=== PATIENT | male | born 1950 | race Caucasian/White ===

== ENCOUNTER 2020-10-29 09:03 | Outpatient (CLI) | payer BC, SELFPAY | END 2020-10-29 09:04 | disposition home or self-care (01) | LOC: ANHSURGERY 09:06 | PROVIDERS: PCP Internal Medicine; Visit Provider Surgery | DX: Z01.818 Encounter for other preprocedural examination (principal); K40.90 Unilateral inguinal hernia, without obstruction or gangrene, not specified as recurrent | CPT/HCPCS: 36415; 86850; 86900; 86901 ==

== ENCOUNTER 2020-11-01 02:29 | Outpatient (CLI) | payer BC, SELFPAY ==
[2020-11-01 17:23] LABS: SARS-CoV-2 RNA PCR Negative
== END 2020-11-01 02:30 | disposition home or self-care (01) ==
LOC: ANHCOVIDDT 02:29
PROVIDERS: PCP Internal Medicine; Visit Provider Surgery
DX: Z01.812 Encounter for preprocedural laboratory examination (principal); Z20.822 Contact with and (suspected) exposure to COVID-19
CPT/HCPCS: C9803; U0003

== ENCOUNTER 2020-11-04 01:23 | Day surgery (SDC) | payer BC, SELFPAY ==
[2020-10-28 10:07] VITALS: BMI 28.9
[2020-11-04] VITALS (7 sets, daily range): BP systolic 117–150; BP diastolic 71–85; PULSE 52–65; RESP 12–16; TEMP 36.6–37.1; O2SAT 98–100
[2020-11-04] MEDS: ACETAMINOPHEN 500 MG TABLET 1000 MG PO (10:57)
[2020-11-04] MEDS: LACTATED RINGERS 1,000 ML 30 ML IV CONT ×2 (11:08→13:55)
--- NOTE | 2020-11-04 11:30 | P.PNAN_ITS ---
Anes - Initial Pre Proc Eval Procedure: Operation Date: 11/04/20 12:30 Proposed Procedures p Robotic Assisted Laparoscopic Right Inguinal Hernia Repair With Mesh - Lizzie Jhaveri MD Date/Time: 11/04/20 11:30 Surgeon: Lizzie Jhaveri MD Pre Op Diagnosis: Inguinal Hernia with obstruction but No Gangrene Patient Data Age: 70 Gender: M Height: 6 ft 2 in Weight: 102.1 kg Allergies Allergy/AdvReac Type Severity Reaction Status Date / Time No Known Allergies Allergy Verified 11/04/20 11:34 Home Medications Medication Instructions Recorded Confirmed Type No Home Medications 10/01/20 10/28/20 History Patient hx anesthesia problems: none Family hx anesthesia problems: none PMFSH Past Medical History Medical History No pertinent past medical history Surgical History Surgical History History of surgical removal of skin lesion lipoma from left arm [place] teeth removed Family History Family History Mother Patient's mother is in good health Father Family history of malignant neoplasm, Onset Age: 78 Leukemia Social History Social History Smoking status: Never smoker Alcohol intake: current Alcohol use details: 1-2 DRINKS PER MONTH Living arrangements: with family 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 Questions were solicited and answers provided to the satisfaction of the patient/family/POA.
[2020-11-04] MEDS: KETOROLAC 15 MG/ML VIAL (*BKC) IV PUSH (11:33)
--- NOTE | 2020-11-04 11:54 | WPDHPUPDATE1 ---
History and Physical Update Update Date/Time: 11/04/20 11:54 History and Physical has been reviewed, including an updated exam of the patient. There are NO changes in the patient's condition. Risks, benefits, and alternatives have been discussed and questions answered. Patient agrees to proceed with procedure.
[2020-11-04] MEDS: ceFAZolin 2 GM/D5W 50 ML 2 GM/50 ML BAG IVPB (12:04)
[2020-11-04] MEDS: BUPIVACAINE HCL 0.5% PF 30 ML VIAL INFILTRATE (12:44)
--- NOTE | 2020-11-04 14:00 | P.OP_ITS ---
Procedure Note - Detailed Date of procedure: 11/04/20 Pre-op diagnosis: Inguinal Hernia with obstruction but No Gangrene Post-op diagnosis: other (incarcerated RIH c scrotal extension) Procedure performed: robotic assisted right inguinal hernia repair Description of procedure: Patient was brought into the operating room and placed in the supine position. After adequate induction of general anesthesia, the patient was prepped and draped in normal sterile fashion. A time-out was then done to verify the patient's identity, as well as the procedure being performed. Began by making a 8 mm incision in the supraumbilical region, a Veress needle was then placed into the peritoneal cavity. CO2 gas was then insufflated and after adequate pneumoperitoneum was achieved, the Veress needle was removed. I then placed an 8 mm trocar through this incision. I then placed the endoscope through this trocar site and under direct visualization placed 2 further 8 mm ports in the right and left mid abdomen. The [employer] robot was then docked to the 3 trocar sites. I then scrubbed out and went to the robotic console. Upon examining the pelvis, it was noted that the patient had a incarcerated right inguinal hernia with some preperitoneal fat. I was able to reduce the preperitoneal fat with gentle retraction out of the hernia. Once this was done, I began by making a preperitoneal flap approximately 6 cm superior to the defect. This flap was carried medially past the umbilical ligaments in laterally to the transversalis. It then began dissection of my medial compartment taking this down to the pubic tubercle. I then began the lateral dissection taking this down to the transversalis fascia. Once these compartments were achieved, I began dissection around the cord structures. It was noted at this point that the patient had a indirect hernia. Patient also had a large lipoma the cord. Using careful dissection, was able to reduce the lipoma cord as well separate the indirect hernia off the cord structures. The hernia was large and extended into the scrotum. Once this was adequately done, I went ahead and placed a 15 x 10 piece of [employer] mesh into the abdominal cavity. The mesh was carefully positioned, centering the center of the mesh over the indirect defect. Once this was done, was very satisfied with our repair. I then closed the peritoneal flap with a running 2.0 V Lock suture. The abdomen was then desufflated, and all ports were removed. All incisions were then closed with the 4.0 monocryl suture. Dermabond was placed on each wound. The patient tolerated the procedure well, was extubated in the operating room postoperatively, and will now be transferred to the recovery room in stable condition. Implants: 15 x 10 progrip mesh Anesthesia: GETA Surgeon: Lizzie Jhaveri MD Estimated blood loss (mL): 10 Drains: No Packing: No Pathology: none sent Complications: No immediate complications Condition: stable Disposition: PACU Findings: indirect RIH c incarcerated fat and scrotal extension
--- NOTE | 2020-11-04 14:21 | SUR.PHASEI ---
PT AWAKE AND ALERT. STATES MILD SORENESS. DOES NOT WANT ANY PAIN MEDICINE AT THIS TIME.
[2020-11-04] MEDS: oxyCODONE HCL (*CRX) 5 MG TAB IR PO (14:51)
== END 2020-11-04 16:05 | disposition home or self-care (01) ==
PROVIDERS: PCP Internal Medicine; Visit Provider Surgery
PROC: 8E0Y4CZ Robotic Assisted Procedure of Lower Extremity, Percutaneous Endoscopic Approach (ICD-10-PCS; CPT 49650; principal; 2020-11-04 12:30)
DX: K40.30 Unilateral inguinal hernia, with obstruction, without gangrene, not specified as recurrent (principal)
CPT/HCPCS: 49650; S2900; A9270; C1781; J0690; J1100; J1885; J2250; J2405; J2704; J2710; J3010; J7120

== ENCOUNTER 2021-02-07 10:48 | Outpatient (CLI) | payer BC, SELFPAY ==
--- NOTE | ~2021-02-07 | US_ITS ---
EXAMINATION: US scrotum doppler DATE: 02/07/2021 11:52 INDICATION: Right testicular pain TECHNIQUE: Testicular sonogram utilizing grayscale and Doppler COMPARISON: None. FINDINGS: The right testis measures 4.6 x 2.0 x 2.3 cm. There is mild enlargement of the rete testis. The left testis measures 4.6 x 1.9 x 3.0 cm. There is mild enlargement of the rete testis. There is decreased flow to the inferior pole of the right testis without discrete mass identified. There are c ysts or a spermatoceles of the epididymides. Bilateral varicoceles are noted. IMPRESSION: 1. Mildly decreased flow in the inferior pole of the right testis without discrete mass identified. C orrelate for history of trauma. Recommend continued clinical follow-up and repeat ultrasound. Reviewed, dictated and finalized at location B. IMPRESSION: 1. Mildly decreased flow in the inferior pole of the right testis without discr ete mass identified. Correlate for history of trauma. Recommend continued clini brenda follow-up and repeat ultrasound.
--- NOTE | ~2021-02-07 | US_ITS ---
EXAMINATION: US soft tissue pelvic INDICATION: Right lower quadrant, history of right inguinal hernia repair TECHNIQUE: Targeted high-resolution ultrasound of the right lower quadrant is performed. COMPARISON: None available FINDINGS: No sonographically detected abnormality is identified in the right lower quadrant in the ar ea of the patient's pain. There is a 7.3 x 5.1 cm hypoechoic mass in the right lower quadrant located more cranially than the area of patient's pain. The mass demonstrates posterior acoustic enhancement without definite internal vascularity. IMPRESSION: 1. No sonographic correlate for the patient's symptoms. 2. Right lower quadrant mass of unclear origin. Finding could reflect sequela of surgery, lymph node, or other solid neoplasm. Further evaluation by CT of the abdomen and pelvis with contrast is recomme nded. Reviewed, dictated and finalized at location B. IMPRESSION: 1. No sonographic correlate for the patient's symptoms. 2. Right lower quadrant mass of unclear origin. Finding could reflect sequela o f surgery, lymph node, or other solid neoplasm. Further evaluation by CT of the abdomen and pelvis with contrast is recommended.
== END 2021-02-07 10:49 ==
PROVIDERS: PCP Internal Medicine; Visit Provider Surgery
DX: N50.811 Right testicular pain (principal); R10.31 Right lower quadrant pain
CPT/HCPCS: 76857; 76870; 93976

== ENCOUNTER → 2021-02-14 13:19 | Outpatient (CLI) | payer BC, SELFPAY ==
--- NOTE | ~2021-02-14 | CT_ITS ---
EXAMINATION: CT abdomen pelvis w con DATE: 02/14/2021 13:54 INDICATION: Right lower quadrant mass. TECHNIQUE: Computed tomography (CT) of the abdomen and pelvis was performed with 100 mL Omnipaque 350 intravenous contrast. Automated exposure control and iterative reconstruction technique were employe d. The dose-length product was 1055.62 mGy-cm. COMPARISON: Ultrasound 02/07/2021 FINDINGS: The visualized portions of the lung bases are clear without pneumonia or pleural effusion. The heart size is normal. No pericardial effusion. Calcifications in the liver and spleen are consist ent with old granulomatous disease. The pancreas, adrenal glands, and kidneys are normal. The prostat e is moderately enlarged. There is diverticulosis of the colon without evidence of diverticulitis. Th e appendix is normal. There is no significant stenosis of celiac axis or superior mesenteric artery o r inferior mesenteric artery. In the retroperitoneum, there is a large distribution of fat stranding and soft tissue attenuation. The distribution of abnormality extends 22 cm craniocaudal from the righ t inguinal region to the retroperitoneal fat posterior to the right kidney. The abnormality extends l eftward across the midline through the root of the small bowel mesentery. There are some small calcif ications within this fat stranding in the right retroperitoneum. In the right retroperitoneum, there is a 8.8 x 6.0 x 6.3 cm mass with relatively hyperdense at the periphery that may be enhancement or c alcification. In the small bowel mesentery to the left of midline, there is an 8.1 x 6.6 x 6.3 cm mas s measuring soft tissue attenuation. An enlarged left para-aortic node measures 2.0 x 1.5 cm. There i s no ascites. There is severe lumbar spondylosis and mild thoracic spondylosis. There is a hemangioma in L1 vertebral body. IMPRESSION: 1. Large distribution of abnormality in the retroperitoneum, most likely at least predominantly fat n ecrosis. An 8.8 cm mass in the right retroperitoneum may be fat necrosis, hematoma, abscess, or urino ma. An 8.1 cm mass in the left retroperitoneum may be hematoma. Malignancy is not excluded. Consider CT urogram to exclude right ureteral injury and left retroperitoneal mass enhancement. 2. Mildly enlarged left para-aortic lymph node. Reviewed, dictated and finalized at location B. IMPRESSION: 1. Large distribution of abnormality in the retroperitoneum, most likely at sandro st predominantly fat necrosis. An 8.8 cm mass in the right retroperitoneum may be fat necrosis, hematoma, abscess, or urinoma. An 8.1 cm mass in the left ret roperitoneum may be hematoma. Malignancy is not excluded. Consider CT urogram t o exclude right ureteral injury and left retroperitoneal mass enhancement. 2. Mildly enlarged left para-aortic lymph node.
[2021-02-14 13:43] LABS: Estimated Glomerular Filt Rate > 60
== END ==
PROVIDERS: PCP Internal Medicine; Visit Provider Surgery
DX: R19.03 Right lower quadrant abdominal swelling, mass and lump (principal)
CPT/HCPCS: 74177; Q9967

== ENCOUNTER 2021-04-02 08:49 | Outpatient (CLI) | payer BC, SELFPAY ==
--- NOTE | ~2021-04-02 | CT_ITS ---
EXAMINATION: CT abdomen pelvis w con EXAM DATE: 04/02/2021 09:29 INDICATION: R19.03 - Right lower quadrant abdominal swelling, mass. TECHNIQUE: Spiral CT of the abdomen and pelvis was performed following intravenous injection of 100 m L Omnipaque 350. Axial, coronal and sagittal images of the abdomen and pelvis were reviewed. The do se-length product (DLP) for this examination was 987.14 mGy-cm. The exposure was tailored according to patient size (auto mA exposure control), and iterative reconstruction (ASIR) was used as additiona l dose reduction technique. Comparison is made to prior examination from 02/13/2021. FINDINGS: Right lower retroperitoneal heterogeneously enhancing, necrotic mass measures 11 cm in AP d imension versus 8.5 on prior study, has increased in size. It is causing some mass effect on the righ t iliopsoas muscle and the right ureter, causing mild to moderate right-sided hydronephrosis which is new compared to previous examination. Higher up there are other soft tissue and fat densities exten ding between the right kidney and right iliopsoas muscle. There is also another lobulation of the lob ulations of this mass both fat and soft tissue density extending toward the left side of the retroper itoneum. Metastatic lymph node between the duodenum and aorta measuring 1.9 cm. Small bowel, omentum being displaced anteriorly by this mass. IVC is flattened or mass effect. Probably liposarcoma or oth er retroperitoneal malignancy. Splenic and liver granulomata. The liver, spleen, adrenal glands and pancreas are otherwise unremarka ble. Gallbladder is unremarkable. No biliary obstruction. The prostate is unremarkable. The bladd er is unremarkable. There is no retroperitoneal or pelvic lymphadenopathy. There is mild scattered arteriosclerotic disease. The appendix is normal. There is extensive sigmoid predominant colonic diverticulosis. There is no a djacent inflammatory change to suggest diverticulitis. The stomach and small bowel are unremarkable. There is expected amount of colonic stool. No free intraperitoneal gas. The heart is normal in s ize. There are no pericardial or pleural effusions. The lung bases are unremarkable. There are no osteoblastic or osteolytic lesions identified. IMPRESSION: 1. Increase in size of retroperitoneal mass, appearance most consistent with liposarcoma. 2. Development of mild to moderate right hydronephrosis from mass effect on ureter. 3. Development of flattening of IVC from mass effect. 4. Extensive sigmoid diverticulosis. I spoke with office manager receptionist in office of Dr. Lizzie Jhaveri at 04/02/2021 13:54 CDT. Requested that he review this report. Reportedly he will be in the office tomorrow. Reviewed, dictated and finalized at location A. IMPRESSION: 1. Increase in size of retroperitoneal mass, appearance most consistent with l iposarcoma. 2. Development of mild to moderate right hydronephrosis from mass effect on ur eter. 3. Development of flattening of IVC from mass effect. 4. Extensive sigmoid diverticulosis. I spoke with office manager receptionist in office of Dr. Lizzie Jhaveri at 04/02/2021 13:54 CD T. Requested that he review this report. Reportedly he will be in the office t omorrow.
[2021-04-02 09:19] LABS: Estimated Glomerular Filt Rate 35
== END 2021-04-02 08:50 | disposition home or self-care (01) ==
PROVIDERS: PCP Internal Medicine; Visit Provider Surgery
DX: R19.03 Right lower quadrant abdominal swelling, mass and lump (principal); K57.30 Diverticulosis of large intestine without perforation or abscess without bleeding
CPT/HCPCS: 74177; Q9967

== ENCOUNTER → 2021-04-04 03:33 | Outpatient (CLI) | payer BC, SELFPAY ==
[2021-04-04 19:50] LABS: SARS-CoV-2 RNA PCR Negative
== END ==
PROVIDERS: PCP Internal Medicine; Visit Provider Surgery
DX: Z01.812 Encounter for preprocedural laboratory examination (principal); Z20.822 Contact with and (suspected) exposure to COVID-19
CPT/HCPCS: C9803; U0003; U0005

== ENCOUNTER 2021-04-07 08:57 | Outpatient (CLI) | payer BC, SELFPAY ==
[2021-04-04 09:57] VITALS: BMI 28.8
[2021-04-07 09:10] LABS: Basophils Percent Auto 0.4 % (0.2-1.2); Eosinophils Absolute Auto 0.1 K/mm3 (0-0.3); Eosinophils Percent Auto 1.6 % (0-4.4); Hematocrit 41.5 % (42.0-52.0); Hemoglobin 13.5 g/dL (14.0-18.0); Immature Granulocyte Absolute 0.07 K/mm3 (0.00-0.031); Immature Granulocyte Percent A 0.9 % (0-0.5); Lymphocytes Absolute Auto 0.81 K/mm3 (0.9-3.2); Lymphocytes Percent Auto 9.9 % (18.3-44.2); Mean Corpuscular HGB Conc 32.5 g/dl (32-36); Mean Corpuscular Hemoglobin 29.6 pg (26-34); Mean Platelet Volume 9.4 fl (7.4-10.4); Monocytes Absolute Auto 0.8 K/mm3 (0.1-0.6); Monocytes Percent Auto 9.3 % (2.6-8.5); Neutrophils Absolute Auto 6.4 K/mm3 (1.3-6.7); Neutrophils Percent Auto 77.9 % (45.5-73.1); Platelet Count Result 148 k/mm3 (150-375); Red Blood Count 4.56 M/mm3 (4.6-6.20); Red Cell Distribution Width 12.2 % (11.5-14.5); White Blood Count 8.2 K/mm3 (4.5-10.0)
[2021-04-07 09:23] LABS: INR 1.1; Prothrombin Time 14.4 Seconds (11.1-14.7)
== END 2021-04-07 08:58 | disposition home or self-care (01) ==
PROVIDERS: Radiology Diagnostic Radiology; PCP Internal Medicine; Visit Provider Surgery
DX: R19.00 Intra-abdominal and pelvic swelling, mass and lump, unspecified site (principal)
CPT/HCPCS: 36415; 85025; 85610

== ENCOUNTER 2021-05-19 07:41 | Outpatient (CLI) | payer BC, SELFPAY ==
[2021-05-19 08:09] LABS: Hematocrit 34.2 % (42.0-52.0); Hemoglobin 10.5 g/dL (14.0-18.0); Mean Corpuscular HGB Conc 30.7 g/dl (32-36); Mean Corpuscular Hemoglobin 27.7 pg (26-34); Mean Corpuscular Volume 90.2 fl (80-100); Mean Platelet Volume 9.1 fl (7.4-10.4); Platelet Count Result 339 k/mm3 (150-375); Red Blood Count 3.79 M/mm3 (4.6-6.20); Red Cell Distribution Width 13.4 % (11.5-14.5); White Blood Count 9.9 K/mm3 (4.5-10.0)
[2021-05-19 08:21] LABS: Alanine Aminotransferase 26 U/L (4-50); Albumin Level 3.3 g/dL (3.5-5.1); Alkaline Phosphatase 257 U/L (38-126); Anion Gap 9 mmol/L (8-16); Aspartate Amino Transferase 23 U/L (17-59); Bilirubin,Total 0.5 mg/dL (0.2-1.3); Blood Urea Nitrogen 19 mg/dL (9-20); Calcium 9.1 mg/dL (8.4-10.2); Carbon Dioxide 25 mmol/L (22-30); Chloride 105 mmol/L (98-107); Estimated Glomerular Filt Rate > 60; Glucose 108 mg/dL (65-110); Potassium 4.8 mmol/L (3.4-5.0); Sodium 139 mmol/L (137-145)
== END 2021-05-19 07:42 | disposition home or self-care (01) ==
PROVIDERS: PCP Internal Medicine
DX: R19.00 Intra-abdominal and pelvic swelling, mass and lump, unspecified site (principal); Z01.818 Encounter for other preprocedural examination
CPT/HCPCS: 36415; 80053; 85027

== ENCOUNTER 2023-05-20 15:01 | Emergency (ER) | payer BC, SELFPAY ==
--- NOTE | ~2023-05-20 | XR_ITS ---
EXAMINATION: XR finger 1st RT min 2V DATE: 05/20/2023 15:31 INDICATION: Right thumb pain and swelling TECHNIQUE: Dorsal palmar, lateral and 2 oblique views of the right first digit were obtained COMPARISON: None FINDINGS: Bone alignment is normal. No fracture. Polyarticular osteoarthritis, moderate severity at the triscap he, first carpometacarpal, first metacarpophalangeal and first interphalangeal joints and mild at the midcarpal and second proximal interphalangeal joints. No erosions to suggest inflammatory arthritis. Soft tissues are unremarkable. IMPRESSION: 1. 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 Reviewed, dictated and finalized at location A.
--- NOTE | 2023-05-20 15:15 | ED.GENADULT ---
HPI - General Adult General Chief complaint: Extremity Injury, Upper Stated complaint: rt thumb pain Time Seen by Provider: 05/20/23 15:18 Source: patient Mode of arrival: ambulatory Limitations: no limitations History of Present Illness HPI narrative: 73-year-old male presented for complaint of right thumb pain for 1 month. Denies injury. Reports pain at the base of the thumb as well as the joint (interphalangeal). Pain with pinching movements, states he is unable to turn a doorknob using the thumb. Endorses decreased ROM to the thumb and states some mornings he cannot move the thumb at all, and the pain is constant and severe. Endorses today he has better mobility. Denies numbness, tingling or weakness of the hand or fingers. Denies wrist pain, swelling or tenderness. Taking ibuprofen for pain. Patient is right hand dominant, golfs and does yard work etc. Also reports left ring finger sticks at times, will wake in the morning and the finger will be bent. Has to 'pry it open.' Related Data Home Medications Medication Instructions Recorded Confirmed apixaban 5 mg tablet (Eliquis) mg 05/20/23 Allergies Allergy/AdvReac Type Severity Reaction Status Date / Time No Known Allergies Allergy Verified 05/26/21 16:29 Review of Systems Review of Systems: CONSTITUTIONAL: Denies body aches, fever, chills EYES: Denies visual changes ENT: Denies rhinorrhea, congestion CARDIOVASCULAR: Denies chest pain, palpitations, or edema. RESPIRATORY: Denies cough or dyspnea. GASTROINTESTINAL: Denies abdominal pain, nausea, vomiting, or diarrhea. SKIN: Denies rash, itching, or wounds. MUSCULOSKELETAL: Reports thumb joint pain Denies back pain, or myalgia. NEUROLOGIC: Denies headache, numbness, tingling, or weakness. PSYCH: Denies depression or anxiety. All systems reviewed & are unremarkable except as noted in HPI and below PMFSH Past Medical History Medical History (Updated 05/20/23 @ 16:11 by Netta Britton APRN) Inguinal hernia of right side without obstruction or gangrene Liposarcoma of peritoneum Surgical History Surgical History (Updated 05/20/23 @ 15:31 by Netta Britton APRN) H/O right nephrectomy History of inguinal hernia repair 11/04/20 robotic assisted right inguinal hernia repair History of surgical removal of skin lesion lipoma from left arm [place] teeth removed Family History Family History Mother Patient's mother is in good health Father Family history of malignant neoplasm, Onset Age: 78 Leukemia Social History Social History (System 05/26/21 @ 16:29 by Shawn Fowler) Smoking status: Never smoker Alcohol intake: current Alcohol use details: 1-2 DRINKS PER MONTH Living arrangements: with family Occupation/Education: occupation 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 Please see nursing chart for further information. There is no relevant family history pertinent to the presenting complaint Exam Narrative: GENERAL: Well-appearing, and in no acute distress. HEAD: Normocephalic, atraumatic. EYES: conjunctivae clear NECK: Supple. CHEST: Speaks in full sentences. No respiratory distress. HEART: Regular rate and rhythm. Normal and equal peripheral pulses. EXTREMITIES: Right hand: Mild swelling and slightly limited range of motion to right thumb MCP and IP joint, reports pain with movement. Recreation Adviser strength limited due to pain. Mild tenderness with palpation to 1st digit IP joint, CMC, and palmar aspect of 1st metacarpal. No erythema or warmth. Normal sensation. No open wounds or obvious deformity; alignment normal. Left hand: 4th digit with mild locking with flexion. Nontender to joints, no swelling or erythema. pulse palpable and
[2023-05-20 15:17] VITALS: BP 135/94; PULSE 67; RESP 18; TEMP 36.9; O2SAT 100
== END 2023-05-20 16:12 | disposition home or self-care (01) ==
PROVIDERS: Emergency Provider Nurse Practitioner Family
DX: M65.311 Trigger thumb, right thumb (principal); M25.541 Pain in joints of right hand; Z90.5 Acquired absence of kidney
CPT/HCPCS: 73140; 99213; G0463

== ENCOUNTER 2025-04-13 09:00 | Emergency (ER) | payer BC, SELFPAY ==
--- NOTE | ~2025-04-13 | XR_ITS ---
XR chest 2V Ordering provider: Prince Mckenna APRN History: 74 years Male with . cough/sob/ RML rhonci/RLL crackles 8 days nonsmoker . Comparison: April 20, 2013 FINDINGS: MEDIASTINUM: The cardiac silhouette is not enlarged. LUNGS: No infiltrates, effusions or pneumothorax. Prominent bronchovascular markings in the right osmany g base medially. OTHER: No free air under the diaphragm. Degenerative changes of the spine. IMPRESSION: No definite acute cardiopulmonary pathology. Reviewed, dictated and finalized at location A.
--- NOTE | 2025-04-13 09:03 | ED.URI ---
HPI - URI/Sore Throat General Chief Complaint: Upper Respiratory Infection Stated Complaint: Persistent deep chest cough Time Seen by Provider: 04/13/25 09:02 Source: patient Mode of arrival: ambulatory Limitations: no limitations History of Present Illness HPI Narrative: Trenton is a 74-year-old male patient presenting to the clinic today with complaints of cough, fever, body aches, chills and chest congestion. He reports cough and chest congestion is been over the last 8-10 days however he did have a few days of fever, body aches, and chills. Cough is productive-hernandez/beige color. States he does feel short of breath at times. He is a nonsmoker. States the highest fever was 102? F. also has similar symptoms and was seen by her PCP and given medications. She had a chest x-ray done and was negative for any pneumonia. MD elicited complaint: sore throat and nasal congestion Related Data Home Medications ?Medication ?Instructions ?Recorded ?Confirmed ?Last Taken ?Type aspirin 81 mg tablet,delayed 81 mg PO DAILY 04/13/25 04/13/25 Unknown History release (Adult Aspirin Regimen) Allergies Allergy/AdvReac Type Severity Reaction Status Date / Time No Known Allergies Allergy Verified 04/13/25 09:14 Review of Systems Review of Systems: Pertinent positives per HPI. Patient denies any rash, headache, visual changes, dizziness,chest pain, palpitations, nausea, vomiting, diarrhea, constipation, abdominal pain, or any urinary issues. [facility] Past Medical History Medical History Liposarcoma of peritoneum Inguinal hernia of right side without obstruction or gangrene Surgical History Surgical History H/O right nephrectomy History of inguinal hernia repair 11/04/20 robotic assisted right inguinal hernia repair [place] teeth removed History of surgical removal of skin lesion lipoma from left arm Family History Family History Mother Patient's mother is in good health Father Family history of malignant neoplasm, Onset Age: 78 Leukemia Social History Social History Smoking status: Never smoker Alcohol intake: current Alcohol use details: 1-2 DRINKS PER MONTH Living arrangements: with family Occupation/Education: occupation 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 There is no relevant family history pertinent to the patient complaint. Exam Narrative: General: Well-developed, well nourished, in no apparent distress Head: Normocephalic, atraumatic Eyes: Pupils equally round and reactive to light bilaterally, EOM intact, sclera and conjunctive clear, no discharge, lids normal Ears: TMs intact and clear, ear canals clear, no drainage, grossly hearing normal. Nose: Nares patent, clear nasal discharge, no inflammation, no sinus tenderness. Mouth: Oral pharynx without lesions or masses, good dentition, MMM. Neck: Supple, trachea midline, no enlargement of anterior or posterior cervical nodes, no thyroid masses or goiter palpable. Cardio: Regular rate and rhythm, s1 and s2 normal, no murmur appreciated. Resp: Clear to auscultation bilaterally, no rhonchi, rales, wheezing or rubs Course Course Emergency Course: Portions of this record may have been created with voice recognition software. Level of Care: Express Care Visit Vital Signs Vital signs: Vital Signs Temperature 36.4 C L 04/13/25 09:13 Pulse Rate 66 04/13/25 09:13 Respiratory Rate 18 04/13/25 09:13 Blood Pressure 118/71 04/13/25 09:13 Pulse Oximetry 100 04/13/25 09:13 Oxygen Delivery Room Air 04/13/25 09:13 Temperature 36.4 C L 04/13/25 09:13 Pulse Rate 66 04/13/25 09:13 Respiratory Rate 18 04/13/25 09:13 Blood Pressure 118/71 04/13/25 09:13 Pulse Oximetry 100 04/13/25 09:13 Oxygen Delivery Room Air 04/13/25 09:13 Vital signs reviewed MDM - URI/Sore Throat MDM Narrative Medical decision making narrative: At the time of visit patient is resting comfortably on the exam table. Patient appears to be nontoxic. Vital signs are stable and oxygenation is 100% on room air. Diagnostics: Chest x-ray shows no definite acute cardio pulmonary pathology. Does have some bronchovascular markings in the right lung arias Plan: I suspect patient has purulent bronchitis. Prescription for azithromycin, prednisone, and albuterol inhaler was sent to the pharmacy. Supportive measures were discussed with the patient and they voiced understanding discharge instructions and agrees to treatment plan. Return precautions reviewed. Differential Diagnosis Differential diagnosis: Likely upper respiratory infection, otitis media, sinusitis, viral infection, bronchitis, influenza, pharyngitis and other (COVID) Imaging Data Radiologist's impression: ITS Impressions Chest X-Ray 04/13/25 09:37 IMPRESSION: No definite acute cardiopulmonary pathology. Discharge Plan Discharge Clinical Impression: Bronchitis Patient Disposition: Home Condition: Stable Instructions: Antibiotic Form, Acute Bronchitis (ED) Additional Instructions: Chest x-rays negative for any sign of pneumonia but probable bronchitis Take prescription medications only as prescribed-prednisone, azithromycin, and albuterol inhaler Increase fluids and stay well hydrated Tylenol/motrin for pain/fever Flonase and OTC antihistamines as directed Vicks vapor rub to open sinuses Sinus rinses for congestion Cepacol spray, cough drops, throat lozenges, warm tea with honey/lemon, gargle salt water to soothe throat BRAT diet for diarrhea Clear liquids x 24 hours then advance as tolerated for nausea/vomiting Go to the ED if you develop a worsening in your condition- high fever not controlled by Tylenol or Motrin, dehydration, weakness, lethargy, shortness of breath, or chest pain. Follow up with your PCP in 3-5 days if symptoms persist. Patient Language: Russian Prescriptions: New azithromycin 250 mg tablet See Rx Instructions .ROUTE .COMPLEX Qty: 6 0RF Rx Instructions: For 250 mg dose pack: take 500 mg today (day 1), then 250 mg for 4 days (days 2-5) prednisone 20 mg tablet 40 mg PO DAILY 5 Days Qty: 10 0RF albuterol sulfate 90 mcg/actuation HFA aerosol inhaler 2 puff inhalation Q4-6H PRN (Reason: shortness of breath or wheezing) 30 Days Qty: 8.5 0RF No Action aspirin [Adult Aspirin Regimen] 81 mg tablet,delayed release (DR/EC) 81 mg PO DAILY Follow-up/Referrals: PHYSICIAN,[employer]PER[employer]OR [Primary Care Provider] - Time of Disposition: 09:50 [facility] [employer] Nursing Documentation ED [facility] nursing documentation: reviewed/agree
[2025-04-13 09:13] VITALS: BP 118/71; PULSE 66; RESP 18; TEMP 36.4; O2SAT 100
== END 2025-04-13 09:55 | disposition home or self-care (01) ==
PROVIDERS: Emergency Provider Nurse Practitioner Family
DX: J40 Bronchitis, not specified as acute or chronic (principal); Z79.82 Long term (current) use of aspirin
CPT/HCPCS: 71046; 99213; G0463